=== PATIENT | female | born 1970 | race Caucasian/White ===

== ENCOUNTER 2017-10-17 22:36 | Emergency (ER) | payer BC ==
[~2017-10-17] VITALS: Ht 165.1 cm; Wt 69.9 kg
--- NOTE | 2017-10-17 22:55 | NUR ---
DR DELMA SAINI MD AT BEDSIDE FOR MSE.
[2017-10-17] MEDS ORDERED: CLINDAMYCIN HCL 150 MG CAPSULE ONE (23:14)
[2017-10-17] MEDS ORDERED: CIPROFLOXACIN HCL 250 MG TABLET ONE (23:15)
[2017-10-17] MEDS ORDERED: CLINDAMYCIN HCL 150 MG CAPSULE PO ONE (23:15)
[2017-10-17] MEDS ORDERED: CIPROFLOXACIN HCL 250 MG TABLET PO ONE (23:15)
[2017-10-17] MEDS ORDERED: TDAP DIPH,PERTUSS,TET VAC/PF 0.5 ML DISP.SYRIN IM ONE ×2 (23:15→23:16)
--- NOTE | 2017-10-17 23:29 | NUR ---
Patient discharged to home in stable conditon. Written and verbal after care instructions given. Patient verbalizes understanding of instructions. Pt took all personal belongings. No distress noted.
[2017-10-17 23:31] VITALS: BP 116/74
== END 2017-10-17 23:32 | disposition home or self-care (01) ==
LOC: ER 22:39
DX: S61.250A Open bite of right index finger without damage to nail, initial encounter (principal); L03.113 Cellulitis of right upper limb; Z88.0 Allergy status to penicillin; W54.0XXA Bitten by dog, initial encounter; Y93.89 Activity, other specified; Y92.89 Other specified places as the place of occurrence of the external cause; Y99.8 Other external cause status
CPT/HCPCS: 90471; 90715; 99283; A4663

== ENCOUNTER 2023-04-20 20:04 | Inpatient (IN) | payer BC ==
[~2023-04-20] VITALS: Ht 165.1 cm; Wt 75.3 kg
[2023-04-20] MEDS ORDERED: ONDANSETRON 4 MG/2 ML VIAL IV ONE (23:15)
[2023-04-20] MEDS ORDERED: HYDROMORPHONE 1 MG/1 ML DISP.SYRIN IV ONE (23:15)
[2023-04-20] MEDS ORDERED: IV NORMAL SALINE 1000 ML BAG IV ONE (23:15)
[2023-04-20] MEDS ORDERED: ONDANSETRON 4 MG/2 ML VIAL ONE (23:36)
[2023-04-20 23:37] LABS: BASOPHILS # (AUTO) 0.1 K/UL (0.0-0.2); EOSINOPHILS # (AUTO) 0.1 K/uL (0.0-0.7); EOSINOPHILS % (AUTO) 0.8 % (0.0-7.0); HEMATOCRIT 42.3 % (31.2-41.9); HEMOGLOBIN 13.9 g/dL (10.9-14.3); LYMPHOCYTES # (AUTO) 0.4 K/uL (0.8-4.8); LYMPHOCYTES % (AUTO) 3.6 % (20.5-51.5); MEAN CORPUSCULAR HEMOGLOBIN 27.9 uug (24.7-32.8); MEAN CORPUSCULAR HGB CONC 33 g/dL (32.3-35.6); MONOCYTES # (AUTO) 0.6 K/uL (0.1-1.30); MONOCYTES % (AUTO) 4.9 % (0.0-11.0); NEUTROPHILS # (AUTO) 10.8 K/uL (1.8-8.9); NEUTROPHILS % (AUTO) 89.7 % (38.5-71.5); PLATELET COUNT (AUTO) 218 K/uL (179-408); RED BLOOD CELL COUNT(AUTO) 4.97 MIL/uL (3.63-4.92); WHITE BLOOD COUNT (AUTO) 12.1 K/uL (3.8-11.8)
[2023-04-20] MEDS ORDERED: HYDROMORPHONE 1 MG/1 ML DISP.SYRIN ONE (23:37)
[2023-04-20 23:38] LABS: DIFFERENTIAL COMMENT 1
[2023-04-20 23:39] LABS: *BLOOD, URINE NEGATIVE (NEGATIVE); *CLARITY,URINE CLEAR (CLEAR); *COLOR,URINE YELLOW (YELLOW); *KETONES,URINE 3+ (NEGATIVE); *PROTEIN,URINE 2+ (NEGATIVE); *UROBILINOGEN,URINE 0.2 E.U./dl (NORMAL); LEUKOCYTE ESTERASE ,URINE NEGATIVE (NEGATIVE); NITRITE, URINE NEGATIVE (NEGATIVE); UGLUCOSE NEGATIVE (NEGATIVE)
[2023-04-20 23:47] LABS: CALCIUM 9.1 mg/dL (8.5-10.1); CREATININE 0.8 mg/dL (0.6-1.3); POTASSIUM 3.8 mmol/L (3.5-5.1)
[2023-04-20 23:49] LABS: *BILIRUBIN,URIN 2+ (NEGATIVE)
[2023-04-20 23:53] LABS: ALBUMIN 4.1 g/dL (3.4-5.0); BILIRUBIN,DIRECT 0.2 mg/dL (0.0-0.2); BILIRUBIN,TOTAL 0.9 mg/dL (0.2-1.0)
[2023-04-21] MEDS ORDERED: HYDROMORPHONE 1 MG/1 ML DISP.SYRIN IV ONE ×2 (02:00→04:00)
[2023-04-21] MEDS ORDERED: HYDROMORPHONE 1 MG/1 ML DISP.SYRIN ONE ×3 (02:26→06:26)
[2023-04-21] MEDS ORDERED: IV NORMAL SALINE 250 ML IV ONE (03:18)
[2023-04-21] MEDS ORDERED: IOHEXOL 350 100 ML INFUS..BTL ONE (03:18)
[2023-04-21] MEDS ORDERED: SWABABLE VALVE TRANSFER SET EA MC ONE (03:18)
[2023-04-21] MEDS ORDERED: AMLO2.5T4 PO (03:31)
[2023-04-21] MEDS ORDERED: PROGESTERONE TD (03:31)
[2023-04-21] MEDS ORDERED: TRAZ-257 PO (03:31)
[2023-04-21] MEDS ORDERED: PROG100C8 PO ×2 (03:31→14:49)
[2023-04-21] MEDS ORDERED: BUSP5TAB3 PO (03:31)
[2023-04-21] MEDS ORDERED: ONDANSETRON 4 MG/2 ML VIAL IV PRN (04:00)
[2023-04-21] MEDS ORDERED: IV D5 1/2 NS 1000 ML 1,000 ML IV PRN (04:00)
[2023-04-21] MEDS ORDERED: ACETAMINOPHEN 325 MG TABLET PO PRN (04:00)
[2023-04-21] MEDS ORDERED: MAGNESIUM HYDROXIDE 30 ML LIQUID UDC PO PRN (04:00)
[2023-04-21] MEDS ORDERED: REMEDY ESSENTIAL ZINC PASTE 113 GM TP PRN (04:00)
[2023-04-21] MEDS ORDERED: METRONIDAZOLE 500 MG/NS 100 ML PIGGYBACK IV ONE (04:15)
[2023-04-21] MEDS ORDERED: levoFLOXacin 750 MG/D5W 150 ML PIGGYBACK IV ONE (04:15)
[2023-04-21] MEDS ORDERED: levoFLOXacin 750MG/D5W 150 ML IV ONE (04:17)
[2023-04-21] MEDS ORDERED: METRONIDAZOLE 500 MG/NS 100ML 100 ML IV ONE (04:17)
[2023-04-21] MEDS ORDERED: CLINDAMYCIN PHOSPHATE IV 600 MG in IV DEXTROSE 5% 100 ML IV SCH ×4 (06:00)
[2023-04-21] MEDS ORDERED: CLINDAMYCIN 600 MG PIGGYBACK**ER OMNI IV ONE ×3 (06:18→23:25)
[2023-04-21] MEDS: HYDROMORPHONE 1 MG/1 ML DISP.SYRIN IV PRN (06:30)
[2023-04-21] MEDS ORDERED: LIDOCAINE 1%-EPI 1:100,000 20 ML VIAL ONE (07:00)
[2023-04-21] MEDS ORDERED: BUPIVACAINE 0.25% 30 ML VIAL ONE (07:00)
[2023-04-21] MEDS ORDERED: BACITRACIN/POLYMYXIN B OINT 15 GM TUBE ONE (07:01)
[2023-04-21] MEDS ORDERED: MIDAZOLAM HCL 2 MG/2 ML VIAL ONE (07:05)
[2023-04-21] MEDS ORDERED: HYDROMORPHONE 2 MG/1 ML DISP.SYRIN ONE (07:05)
[2023-04-21] MEDS ORDERED: FENTANYL CITRATE 250 MCG/5 ML AMPUL ONE (07:06)
[2023-04-21] MEDS ORDERED: ROCURONIUM BROMIDE 50 MG/5 ML VIAL ONE (07:06)
[2023-04-21] MEDS ORDERED: FAMOTIDINE. 20 MG/2 ML VIAL IV ONE (07:06)
[2023-04-21] MEDS ORDERED: METOCLOPRAMIDE HCL 10 MG/2 ML VIAL ONE (07:12)
[2023-04-21] MEDS ORDERED: GLYCOPYRROLATE 0.2 MG/ML VIAL ONE (07:12)
[2023-04-21] MEDS ORDERED: ONDANSETRON 4 MG/2 ML VIAL ONE (07:12)
[2023-04-21] MEDS ORDERED: DEXAMETHASONE SOD PHOSPHATE 4 MG INJ ONE (07:12)
[2023-04-21] MEDS ORDERED: LIDOCAINE-MPF 2% 5 ML VIAL ONE (07:12)
[2023-04-21] MEDS ORDERED: NEOSTIGMINE METHYLSULFATE 10 MG/10 ML VIAL ONE (07:12)
[2023-04-21] MEDS ORDERED: PROPOFOL 200 MG/20 ML BOTTLE ONE (07:12)
[2023-04-21] MEDS ORDERED: CLINDAMYCIN PHOSPHATE IV 600 MG in IV DEXTROSE 5% 50 ML IV SCH (08:08)
[2023-04-21] MEDS ORDERED: HYDROMORPHONE 2 MG/1 ML DISP.SYRIN IV PRN (10:00)
[2023-04-21] MEDS ORDERED: HYDROMORPHONE 1 MG/1 ML DISP.SYRIN IV PRN (11:00)
[2023-04-21 12:00] VITALS: BP 90/56; TEMP 98.1; O2SAT 98
[2023-04-21] MEDS: PANTOPRAZOLE SODIUM 40 MG VIAL IV SCH (12:24)
[2023-04-21] MEDS: ACETAMINOPHEN 325 MG TABLET PO SCH ×2 (12:24→21:23)
[2023-04-21] MEDS: CELECOXIB 200 MG CAPSULE PO SCH ×2 (12:25→21:24)
[2023-04-21] MEDS: GABAPENTIN 100 MG CAPSULE PO SCH ×2 (12:25→21:24)
[2023-04-21] MEDS: levoFLOXacin 750MG/D5W 750 MG in PREMIXED 1 EACH IV SCH (13:05)
[2023-04-21] MEDS ORDERED: BUSP15TA3 PO (14:48)
[2023-04-21] MEDS ORDERED: ESTRADIOL PATCH TOP (14:55)
[2023-04-21] MEDS ORDERED: BUPR-319 PO (15:01)
[2023-04-21] MEDS: CLINDAMYCIN PHOSPHATE IV 600 MG in IV DEXTROSE 5% 50 ML IV SCH ×2 (16:17→23:31)
[2023-04-21] MEDS ORDERED: POTASSIUM CHLORIDE 20 MEQ in IV NS 1000 ML 1,000 ML IV PRN (18:30)
[2023-04-21 20:00] VITALS: BP 97/62; TEMP 98.4; O2SAT 96
[2023-04-21] MEDS ORDERED: TRAZODONE 100 MG TABLET PO SCH (21:00)
[2023-04-22 04:00] VITALS: BP 103/63; TEMP 98.2; O2SAT 100
[2023-04-22] MEDS: GABAPENTIN 100 MG CAPSULE PO SCH ×2 (05:30→13:29)
[2023-04-22] MEDS: ACETAMINOPHEN 325 MG TABLET PO SCH ×2 (05:30→13:29)
[2023-04-22 07:25] LABS: BASOPHILS % (AUTO) 0.2 % (0.0-2.0); EOSINOPHILS % (AUTO) 0.4 % (0.0-7.0); HEMATOCRIT 31.6 % (31.2-41.9); HEMOGLOBIN 10.6 g/dL (10.9-14.3); LYMPHOCYTES # (AUTO) 1.4 K/uL (0.8-4.8); LYMPHOCYTES % (AUTO) 19.6 % (20.5-51.5); MEAN CORPUSCULAR HEMOGLOBIN 28.4 uug (24.7-32.8); MEAN CORPUSCULAR HGB CONC 34 g/dL (32.3-35.6); MONOCYTES # (AUTO) 0.6 K/uL (0.1-1.30); MONOCYTES % (AUTO) 7.7 % (0.0-11.0); NEUTROPHILS # (AUTO) 5.3 K/uL (1.8-8.9); NEUTROPHILS % (AUTO) 72.1 % (38.5-71.5); PLATELET COUNT (AUTO) 145 K/uL (179-408); RED BLOOD CELL COUNT(AUTO) 3.72 MIL/uL (3.63-4.92); RED CELL DISTRIBUTION WIDTH 14.3 % (12.3-17.7); WHITE BLOOD COUNT (AUTO) 7.3 K/uL (3.8-11.8)
[2023-04-22 07:29] LABS: DIFFERENTIAL COMMENT 1
[2023-04-22 07:37] LABS: ALBUMIN 2.4 g/dL (3.4-5.0); BILIRUBIN,DIRECT 0.1 mg/dL (0.0-0.2); BILIRUBIN,TOTAL 0.5 mg/dL (0.2-1.0); CALCIUM 7.7 mg/dL (8.5-10.1); CREATININE 0.8 mg/dL (0.6-1.3); MAGNESIUM 2.2 mg/dL (1.8-2.4); TOTAL PROTEIN, SERUM 5.5 g/dL (6.4-8.2)
[2023-04-22] MEDS ORDERED: Medication Not On Formulary EA (Bupropion Hcl (Bupropion Xl) 300 MG) PO SCH (09:00)
[2023-04-22] MEDS ORDERED: buPROPion XL 150 MG TAB.SR.24H PO SCH (09:00)
[2023-04-22] MEDS: CELECOXIB 200 MG CAPSULE PO SCH (09:04)
[2023-04-22] MEDS: PANTOPRAZOLE SODIUM 40 MG VIAL IV SCH (09:05)
[2023-04-22] MEDS: CLINDAMYCIN PHOSPHATE IV 600 MG in IV DEXTROSE 5% 50 ML IV SCH (09:25)
[2023-04-22] MEDS ORDERED: NEUTRA PHOS PACKET PO ONE (10:30)
[2023-04-22 10:51] LABS: IRON, SERUM 18 ug/dL (50-175)
[2023-04-22] MEDS: levoFLOXacin 750MG/D5W 750 MG in PREMIXED 1 EACH IV SCH (11:30)
[2023-04-22 12:12] VITALS: BP 126/83; TEMP 98.7; O2SAT 99
[2023-04-22] MEDS ORDERED: CLIN300C12 PO (13:56)
[2023-04-22] MEDS ORDERED: FERR324T17 PO (13:56)
[2023-04-22] MEDS ORDERED: DOCU-141 PO (14:05)
[2023-04-23] MEDS ORDERED: PANTOPRAZOLE SODIUM 40 MG TABLET.DR PO SCH (07:00)
== END 2023-04-22 15:40 | disposition home or self-care (01) | DRG 399 ==
LOC: ER 20:06 → TRANSITION 04-21 02:00 → MEDSURG3 04-21 10:53 → MED 04-22 08:03
PROVIDERS: ADMIT Internal Medicine; ATTEND Internal Medicine
PROC: 0DTJ4ZZ Resection of Appendix, Percutaneous Endoscopic Approach (ICD-10-PCS; principal; 2023-04-21)
DX: K35.80 Unspecified acute appendicitis (principal); K56.41 Fecal impaction; D50.9 Iron deficiency anemia, unspecified; E66.9 Obesity, unspecified; I10 Essential (primary) hypertension; Z88.0 Allergy status to penicillin; F41.9 Anxiety disorder, unspecified; G47.00 Insomnia, unspecified; Z20.822 Contact with and (suspected) exposure to COVID-19; K82.8 Other specified diseases of gallbladder; M51.9 Unspecified thoracic, thoracolumbar and lumbosacral intervertebral disc disorder; K66.0 Peritoneal adhesions (postprocedural) (postinfection); D18.03 Hemangioma of intra-abdominal structures; Z83.3 Family history of diabetes mellitus
CPT/HCPCS: 36415; 71045; 83550; 83690; 83735; 84100; 85025; 85730; A4606; A4663; C9113; G0378; J1100; J1170; J1956; J2250; J2405; J2765; J3010; J3480; J3490; J7040; Q9967